=== PATIENT | male | born 1995 | race Two or more races ===

== ENCOUNTER 2024-11-30 08:23 | Emergency (ER) | payer MEDICAID ==
[~2024-11-30] VITALS: Ht 172.7 cm; Wt 70.0 kg
[2024-11-30 08:44] VITALS: TEMP 98.6
[2024-11-30 08:56] LABS: COVID AG,FIA SOURCE NASAL SWAB
[2024-11-30 09:17] LABS: RAPID GROUP A STREP NEGATIVE (NEGATIVE)
[2024-11-30 09:25] LABS: SARS-COV2 (COVID) ANTIGEN,FIA Negative (Negative)
[2024-11-30 09:28] LABS: INFLUENZA TYPE A NEGATIVE FOR TYPE A (NEGATIVE); INFLUENZA TYPE B NEGATIVE FOR TYPE B (NEGATIVE)
[2024-11-30 10:00] VITALS: BP 122/68; PULSE 84; RESP 16; O2SAT 99
[2024-11-30] MEDS ORDERED: AMOX500C2 PO (10:05)
== END 2024-11-30 10:29 | disposition home or self-care (01) ==
LOC: EMS 09:11
DX: J35.1 Hypertrophy of tonsils (principal); Z20.822 Contact with and (suspected) exposure to COVID-19
CPT/HCPCS: 87430; 87804; 99283